=== PATIENT | male | born 1955 | race Caucasian/White ===

== ENCOUNTER 2019-01-29 10:01 | Inpatient (IN) ==
--- NOTE | 2019-01-28 08:54 | Anesthesiology Consultation ---
Date of Service January 28, 2019 Assessment & Plan Chart Review Chart Review: Acceptable Risk for Surgery (pending preop testing (if not obtained prior to surgery, will order for AM DOS)) and Patient NOT seen in Pre Admission Testing History Surgery Operation Date: 01/29/19 12:55 Proposed Procedures p Left Shoulder Arthroscopy, Revision Rotator Cuff Repair with Augment Graft Versus Superior Capsular Reconstruction - Remington Salmeron MD Height/Weight Height: 6 ft Weight: 124.738 kg Allergies Allergy/AdvReac Type Severity Reaction Status Date / Time No Known Allergies Allergy Verified 01/22/19 10:08 Medications Home Medications Medication Instructions Recorded Confirmed Last Taken docusate sodium [Stool Softener] 100 mg PO DAILY PRN 01/22/19 01/22/19 Unknown duloxetine [Cymbalta] 60 mg PO HS 01/22/19 01/22/19 Unknown ibuprofen 200 mg PO Q6H PRN 01/22/19 01/22/19 Unknown lactulose 10 g PO HS PRN 01/22/19 01/22/19 Unknown methadone 20 mg PO HS 01/22/19 01/22/19 Unknown oxycodone-acetaminophen [Percocet] 1 tab PO TID PRN 01/22/19 01/22/19 Unknown trazodone 200 mg PO HS 01/22/19 01/22/19 Unknown Past Medical History Medical History Chronic pain follows w/pain management (Dr. Morgan/ASHLEY Cruz) Constipation Depression Neuropathy Obesity Sleep apnea no device Past Surgical History Surgical History History of cataract surgery History of colonoscopy History of detached retina repair x 2 History of esophagogastroduodenoscopy (EGD) History of repair of rotator cuff Rt x 2, Lt x 2 History of toe surgery Hx of LASIK Hx of microdiscectomy lumbar spine Status post excision of lipoma RLE Social History Smoking Status: Former smoker tobacco type: cigarettes Do You Dip or Chew Tobacco: No Smoking End Date: quit 5-6 months ago Hx Alcohol Use: Yes Alcohol type: beer alcohol intake frequency: 3 or more drinks per day Alcohol Intake Frequency Comment: 3-4 drinks per day Hx Substance Use: No substance use type: does not use
--- NOTE | 2019-01-28 20:23 | History and Physical Report ---
DATE OF ADMISSION: 01/29/2019 CHIEF COMPLAINT: Chronic left shoulder pain. HISTORY OF PRESENT ILLNESS: This is a 63-year-old male patient of Dr. Caldwell who underwent a second rotator cuff repair in 08/2014. He was attending physical therapy and thinks that he re-tore it doing some exercises. An MRI confirmed a re-tear of the rotator cuff. The patient wished to proceed with a left shoulder arthroscopic revision rotator cuff repair versus augmentation with a graft. PAST MEDICAL HISTORY: Anxiety, peripheral neuropathy, sciatica. SOCIAL HISTORY: He was a lifelong smoker, quit 6 months ago. He is a 12-drink per week drinker. PAST SURGICAL HISTORY: Only significant for a lipoma removal. FAMILY HISTORY: Noncontributory. REVIEW OF SYSTEMS: Chronic left shoulder pain and weakness. Otherwise, denies any shortness of breath, chest pain, nausea, vomiting or any other joint complaints. FAMILY HISTORY: Noncontributory. MEDICATIONS: 1. Trazodone 100 mg 2 tablets daily. 2. Cymbalta 60 mg daily. 3. Percocet 10/325 three times daily as needed. 4. Methadone 10 mg 2 tablets at bedtime. ALLERGIES: No known drug allergies. PHYSICAL EXAMINATION: GENERAL: Well-developed, well-nourished 63-year-old male in no acute distress. He is alert and oriented x3 and pleasant. HEENT: Normocephalic, atraumatic. Extraocular motions are intact. Pupils are equal and reactive to light. HEART: Regular rate and rhythm, no murmurs. LUNGS: Clear. ABDOMEN: Soft, nontender, bowel sounds present. EXTREMITIES: Left shoulder reveals active range of motion of 0-170, passively to 180 with pain. He has catching and locking with range of motion. He has 4/5 strength globally. Neurologically and neurovascularly, he is intact in his left upper extremity. DIAGNOSES: Left shoulder multiple rotator cuff failures confirmed by MRI, anxiety, peripheral neuropathy. PLAN: The patient was advised of his diagnosis. Indications, risks, benefits, postop course have all been reviewed. The patient wished to proceed with a left shoulder arthroscopic revision rotator cuff repair versus augmentation with graft repair. Necessary consent forms, preoperative testing and clearances will be obtained.
[~2019-01-29 10:01] MED LIST: CEFAZOLIN 3000MG 65 ML IV SCH; DEXAMETHASONE SOD INJ 4 MG/ML VIAL ONE; EPINEPHrine INJ 1 MG/ML AMP ONE; LR 15ML/HR IV SCH; ROPIVACAINE 0.5% 5 MG/ML 30 ML VIAL ONE
[2019-01-29 11:07] LABS: Partial Thromboplastin Ratio 0.9; Partial Thromboplastin Time 23.6 Seconds (21.0-31.0); Prothrombin Time 10.3 Seconds (9.0-12.0)
--- NOTE | 2019-01-29 11:34 | XRay Report ---
TWO VIEW CHEST CLINICAL HISTORY: Preoperative examination. FINDINGS: PA and lateral chest radiographs are obtained. No prior studies are available for compariso n at the time of dictation. The cardiomediastinal silhouette is unremarkable. The lungs and pleural spaces are clear. There is no pneumothorax. The bony thorax appears intact. IMPRESSION: No active disease in the chest. Electronically signed by: Gibran Hunter M.D. 01/29/2019 11:32 AM
[2019-01-29] MEDS ORDERED: NEOSTIGMINE METHYLSULFATE 5 MG/5 ML SYR ONE (13:23)
[2019-01-29] MEDS ORDERED: GLYCOPYRROLATE 0.2 MG/ML VIAL ONE (13:23)
[2019-01-29] MEDS ORDERED: ONDANSETRON INJ 2 MG/ML 2 ML VIAL ONE (13:23)
[2019-01-29] MEDS ORDERED: MIDAZOLAM HCL 1 MG/ML 2ML VIAL ONE (13:23)
[2019-01-29] MEDS ORDERED: LIDOCAINE HCL 2% 2 ML VIAL/AMP(20MG/ML) INFIL ONE (13:23)
[2019-01-29] MEDS ORDERED: fentaNYL citrate 100 MCG/2 ML VIAL ONE (13:23)
[2019-01-29] MEDS ORDERED: PROPOFOL IV EMULSION 10 MG/ML 20 ML VIAL IV ONE (13:23)
[2019-01-29] MEDS ORDERED: DEXAMETHASONE SOD INJ 4 MG/ML VIAL ONE (13:23)
[2019-01-29] MEDS ORDERED: ROCURONIUM BROMIDE 10 MG/ML 5 ML VIAL ONE (13:23)
[2019-01-29] MEDS ORDERED: PROMETHAZINE HCL 12.5 MG in SODIUM CHLORIDE 0.9% 50 ML IV PRN (13:51)
[2019-01-29] MEDS ORDERED: HYDROmorphone INJ 1 MG/ML SYRINGE IV PRN (13:51)
[2019-01-29] MEDS ORDERED: FLUMAZENIL 0.1 MG/1 ML 10 ML VIAL IV PRN (13:51)
[2019-01-29] MEDS ORDERED: ONDANSETRON INJ 2 MG/ML 2 ML VIAL IV PRN (13:51)
[2019-01-29] MEDS ORDERED: NALOXONE HCL 0.4 MG/1 ML VIAL/CARP IV PRN ×2 (13:51→19:08)
[2019-01-29] MEDS ORDERED: ePHEDrine sulfate 50 MG/ML AMP IV PRN (13:51)
[2019-01-29] MEDS ORDERED: ATROPINE SULFATE 0.1 MG/ML 10ML SYR IV PRN (13:51)
[2019-01-29] MEDS ORDERED: LABETALOL HCL IV 5 MG/ML 20ML IV PRN (13:51)
--- NOTE | 2019-01-29 14:13 | History & Physical Bridge Note ---
Date of Service January 29, 2019 History & Physical Bridge Note I have examined the patient, reviewed the History & Physical and in the interval since the performance of the History & Physical I have noted the following changes of clinical significance: no changes noted
[2019-01-29] MEDS ORDERED: EPINEPHrine HCL INJ 1 MG/ML 30ML ONE (14:48)
[2019-01-29] MEDS ORDERED: ePHEDrine sulfate 50 MG/ML SYR ONE (17:28)
[2019-01-29] MEDS ORDERED: KETOROLAC 30 MG/ML VIAL ONE (17:35)
--- NOTE | 2019-01-29 18:01 | Post Operative Brief Note ---
Immediate Post Op Note v1 Date of Surgery January 29, 2019 Pre & Post Diagnosis Operation Date: 01/29/19 12:55 Pre-Op Diagnosis: Left Shoulder Recurrent Rotator Cuff Tear Post-Op Diagnosis: Left Shoulder Recurrent Rotator Cuff Tear, subacromial impingement, AC joint osteoarthritis, subacromial bursitis, rotator cuff tendinopathy, long head biceps rupture, DJD glenohumeral joint, degenerative glenoid labral tear, estephania ined suture material and anchor status post prior rotator cuff repair. I identified the patient and participated in the time-out.: Yes Procedure Operation Date: 01/29/19 12:55 Actual Procedures p Left Shoulder Arthroscopy, Revision Rotator Cuff Repair and subacromial decompression, primary distal clavicle excision, extensive debridement.- Remington Salmeron MD Surgeon Remington Salmeron MD Server Developer ASHLEY Mota Estimated Blood Loss 5 Findings Consistent with Post-Op Diagnosis Anesthesia Type General Regional Disposition Accompanied Patient To Recovery: No Disposition: Recovery Room Overlapping Procedure I was immediately available: during the entire case.
--- NOTE | 2019-01-29 18:18 | Operative Report ---
Post Operative Report Pre & Post Diagnosis Operation Date: 01/29/19 12:55 Pre-Op Diagnosis: Left Shoulder Recurrent Rotator Cuff Tear, Failed rotator cuff repair. Post-Op Diagnosis: Left Shoulder Recurrent Rotator Cuff Tear, failed rotator cuff repair, subacromial impingement, AC joint osteoarthritis, subacromial bursitis, retained suture material and suture anchor status post prior repair, glenohumeral DJD and degenerative glenoid labral tear and long head biceps rupture. I identified the patient and participated in the time-out.: Yes Procedure Operation Date: 01/29/19 12:55 Actual Procedures p Left Shoulder Arthroscopy, Revision Rotator Cuff Repair and revision subacromial decompression with primary distal clavicle excision and extensive debridement.- Remington Salmeron MD Surgeon Remington Salmeron MD Noc Analyst ASHLEY Mota Estimated Blood Loss 5 Findings Consistent with Post-Op Diagnosis Specimens None Drains None Anesthesia Type General Regional Complications none Disposition Accompanied Patient To Recovery: No Disposition: Recovery Room Indications 63-year-old male with recent rotator cuff repair that went on to failure with chronic unremitting pain weakness. Multiple tests including MRIs x-rays CT demonstrating a moderate retracted failed rotator cuff repair with reasonable good muscle bellies of retained anchors from prior surgery with no loosening of anchors with prior subacromial decompression but significant spurs and prominence under AC joint which are likely causing continued impingement. Description of Procedure The patient was to the operating room anesthetized under regional block and general anesthesia. The patient was positioned on the operating table in the 7 0 beachchair position. All of the other extremities were well-padded. The left upper extremity was prepped and draped in the usual sterile fashion. Examination demonstrated moderate obesity good passive range of motion subacromial crepitation some prominence of the AC joint previous scars from prior surgery.. Arthroscopy of the shoulder was performed via anterior and posterior arthroscopy portals. Posterior portal was placed in the soft spot and the anterior portal was placed in the rotator interval. Subsequent portals included lateral subacromial and superior lateral incision for suture anchor placement. The following findings were noted: In the glenohumeral joint there were delaminating flaps of articular surface of the humeral head one small grade 4 lesion about 5 mm. There was grade III and II chondromalacia inferior mid glenoid area. There was degenerative fraying of the labrum anterior inferior to posterior inferior. Long head biceps was ruptured and absent. Rotator cuff was torn with a large V- shaped tear with the supraspinatus retracted anteriorly with the rotator interval tissue and the infraspinatus still intact. Infraspinatus did have significant tendinopathy with marked fraying of the tendon but a fairly landon tendon and it did hold sutures satisfactorily. In the subacromial space was a lateral acromioplasty performed medial side had large spurs type III shape to the acromion significant subacromial impingement inferior AC joint spurs contribute to impingement and moderately advanced AC joint arthritis with some scar tissue of the AC joint. There is chronic subacromial bursitis there was tendinopathy of the entire rotator cuff bursal surface with fraying of the supraspinatus tissue as well as the infraspinatus tissue. Some of the tapes of the previous fixation were still intact and the failure of the rotator cuff repair was soft tissue failure. There was one exposed anchor which was slightly prominent with some suture knots and suture material noted in that area. There was a small area of exposed bone on the greater tuberosity which was about 15 mm wide at the articular margin and 8 mm wide at the lateral greater tuberosity with a triangular shaped area of failure of the cuff to heal that area. This created a large V shaped type tear. The flaps were mobile so that we can do a [id number] closure. Attention was first taken to performing extensive debridement of glenohumeral joint removing the unstable flaps around the grade 4 lesion all delaminating flaps and humeral head removed the grade 3 areas of fraying on the glenoid were smoothed down the labrum was debrided back to stable intact tissue. The scarred capsule anterior superior was released under the supraspinatus infraspinatus and and rotator interval to mobilize the supraspinatus tendon tissue. The subscapularis tendon was intact. The undersurface of the rotator cuff was debrided. And subacromial space the bursa and periosteum the undersurface of the acromion was ablated to fully visualize the acromion pattern. The pathological bursa around the rotator cuff tear was resected to fully visualize rotator cuff tear pattern. The bursal surface of the rotator cuff was debrided removing the frayed bursal sided rotator cuff degenerative tissue. The edges of the tear were debrided. The footprint supraspinatus was abraded down to bone to get a healing response for the repair. The anchor that was slightly prominent was trimmed back to the left intact. The suture material was removed from the old repair. Basket punch was used to remove the suture material. A subacromial revision decompression was performed. Used a 5.5 bur to plane that acromion to type I flat shape taking care to smooth the previous contour edge that was prominent at the edge of the prior acromioplasty to a smoother surface and the spurs toward the medial AC joint area were all resected. 1 cm distal clavicle was resected using the hardeep through the anterolateral portal of 30 and 70 degree arthroscope of the visualized resection leave the superior and posterior capsule intact for stability. The rotator cuff was repaired with 3 Arthrex suture tapes that were placed in [id number] fashion spanning the tear from medial to lateral. A [employer] triple loaded Helicoil suture anchor was stacked adjacent to the anchor that was still in place from the prior surgery and there was excellent fixation. The sutures were placed to the supraspinatus tendon anteriorly placing 2 and a 3 sutures around the side to side tapes using them as ripstop technique. All sutures were tied with A Jermaine sliding locking knot with 3 reversed half hitches and alternating posts. A complete coverage of the humeral head was accomplished bringing the infraspinatus posteriorly to the supraspinatus anteriorly and the anterior supraspinatus down to bone. The repair was care with the arm at the side and with rotation there was no impingement. The portal sites were closed with interrupted nylon sutures. Sterile dressings were applied and a pillow sling immobilizer. The patient tolerated the procedure well. My physician assistant financial accountant ASHLEY Mota, assisted in arm positioning, instrument management, suture management when indicated, incision closure, sling application, and will participate in the postoperative care of the patient. I attest to the content of the Intraoperative Record and any orders documented therein. Any exceptions are noted below.
--- NOTE | 2019-01-29 18:36 | Anesthesiology Progress Note ---
Date of Service January 29, 2019 Anesthesia Post Procedure Vital Signs Vital Signs: Temp Pulse Pulse Resp BP Pulse Ox 01/29/19 18:30 72 19 142/88 H 96 01/29/19 18:20 77 18 163/98 H 97 01/29/19 18:10 71 15 172/96 H 97 01/29/19 18:02 36.7 C 91 H 12 187/83 H 93 01/29/19 10:35 36.8 C 62 18 151/99 H 98 Pain Intensity Left Shoulder: Pain Intensity: 0 Transfer of Care Handoff Completed per policy Notes Mental Status: alert / awake / arousable Patient Amnestic to Procedure: Yes Nausea / Vomiting: adequately controlled Pain: adequately controlled Airway Patency, RR, SpO2: stable & adequate BP & HR: stable & adequate Hydration State: stable & adequate Anesthetic Complications: no major complications apparent Notes: left eyelid a little droopy, likely block related.
[2019-01-29] MEDS ORDERED: MAGNESIUM HYDROXIDE SUSP 30 ML UDC PO PRN (19:08)
[2019-01-29] MEDS ORDERED: bisacodyL 10 MG SUPP PR PRN (19:08)
[2019-01-29] MEDS ORDERED: DOCUSATE SODIUM 100 MG CAP PO PRN (19:08)
[2019-01-29] MEDS ORDERED: LACTULOSE SYRUP 10 GM/15 ML BTL 473 ML PO PRN (19:23)
[2019-01-29] MEDS ORDERED: LORazepam 1 MG TAB PO PRN (19:27)
[2019-01-29] MEDS: SODIUM CHLORIDE 0.9% 1000ML 1,000 ML IV SCH (20:29)
[2019-01-29] MEDS: HYDROmorphone HCL 2 MG TAB PO PRN (20:36)
[2019-01-29] MEDS ORDERED: DULOXETINE HCL 60 MG CAP PO SCH (21:00)
[2019-01-29] MEDS ORDERED: SENNA 8.6 MG TAB PO SCH (21:00)
[2019-01-29] MEDS ORDERED: TRAZODONE HCL 100 MG TAB PO SCH (21:00)
[2019-01-29] MEDS: DOCUSATE SODIUM 100 MG CAP PO SCH (21:18)
[2019-01-29] MEDS: ACETAMINOPHEN 500 MG TAB PO SCH (21:19)
[2019-01-29] MEDS: HYDROmorphone INJ 0.5 MG/0.5 ML SYR IV PRN (23:15)
[2019-01-30] MEDS: HYDROmorphone HCL 2 MG TAB PO PRN (01:15)
[2019-01-30] MEDS: ACETAMINOPHEN 500 MG TAB PO SCH (05:43)
[2019-01-30] MEDS: SODIUM CHLORIDE 0.9% 1000ML 1,000 ML IV SCH (05:49)
[2019-01-30 06:35] LABS: Hemoglobin 14.6 g/dL (14.0-18.0); Immature Granulocytes # (auto) 0.05 K/uL (0.00-0.02); Immature Granulocytes % (auto) 0.3 %; Lymphocytes # (auto) 1.54 K/uL (1.2-3.4); Lymphocytes % (auto) 9.3 %; Mean Corpuscular Hemoglobin 32.3 pg (25-34); Mean Corpuscular Volume 95.1 fL (80-100); Mean Platelet Volume 9.9 fL (7.4-10.4); Monocytes # (auto) 0.63 K/uL (0.11-0.59); Monocytes % (auto) 3.8 %; Neutrophils # (auto) 14.41 K/uL (1.4-6.5); Neutrophils % (auto) 86.6 %; Platelet Count 257 K/uL (130-400); RDW Coefficient of Variation 13.3 % (11.5-14.5); Red Blood Count 4.52 M/uL (4.7-6.1); White Blood Count 16.63 K/uL (4.8-10.8)
[2019-01-30 07:14] LABS: BUN Creatinine Ratio 20.5 (10-20); Calcium 8.5 mg/dl (8.5-10.1); Creatinine Clr Calc Pharmacy 96.2 ml/min; Est GFR (African American) 86.8; Est GFR (Non-African American) 74.8; Potassium 4.3 mmol/L (3.5-5.1)
--- NOTE | 2019-01-30 08:30 | Orthopedic Progress Note ---
Date of Service January 30, 2019 Assessment & Plan (1) Rotator cuff syndrome of right shoulder: POD #1 Revision RCR, decompression, DCE. Limited HEP as per home instruction sheet in chart Pain control D/C home today Follow with PCP concerning BP. (2) Rotator cuff arthropathy of right shoulder: Subjective POD #1, Doing well. Denies SOB, CP, N/V. Pain controlled well. NO PT needed. BP running somewhat high, likely do to pain. Physical Exam Physical Exam: Left shoulder dressings c/d/i, no drainage. Fingers mobile. Sling in tact. N/V+ A&Ox3. Results & Data Vital Signs (Past 12 Hours) Vital Signs Temp Pulse Pulse Resp BP Pulse Ox 01/30/19 07:38 36.6 C 40 L 16 173/92 H 96 01/30/19 05:35 36.8 C 78 18 152/81 H 96 01/29/19 23:06 36.8 C 74 16 128/72 92 01/29/19 22:04 36.8 C 76 16 154/88 H 94 01/29/19 21:14 36.6 C 74 16 151/89 H 94
[2019-01-30] MEDS: DOCUSATE SODIUM 100 MG CAP PO SCH (08:52)
[2019-01-30] MEDS: HYDROmorphone INJ 0.5 MG/0.5 ML SYR IV PRN (08:56)
[2019-01-30] MEDS ORDERED: MULTIVITAMIN TAB PO SCH (09:00)
--- NOTE | 2019-01-30 14:34 | Anesthesiology Progress Note ---
Date of Service January 30, 2019 Anesthesia Post Procedure Vital Signs Vital Signs: Temp Pulse Pulse Pulse Resp BP Pulse Ox 01/30/19 10:01 36.6 C 40 L 76 16 173/92 H 96 01/30/19 07:38 36.6 C 40 L 16 173/92 H 96 01/30/19 05:35 36.8 C 78 18 152/81 H 96 01/29/19 23:06 36.8 C 74 16 128/72 92 01/29/19 22:04 36.8 C 76 16 154/88 H 94 01/29/19 21:14 36.6 C 74 16 151/89 H 94 01/29/19 20:10 36.6 C 70 16 148/87 H 95 01/29/19 19:34 36.7 C 60 18 168/96 H 95 01/29/19 19:05 36.9 C 65 16 151/91 H 97 01/29/19 18:40 37.4 C 68 19 158/88 H 96 01/29/19 18:30 72 19 142/88 H 96 01/29/19 18:20 77 18 163/98 H 97 01/29/19 18:10 71 15 172/96 H 97 01/29/19 18:02 36.7 C 91 H 12 187/83 H 93 Pain Intensity Left Shoulder: Pain Intensity: 5 Notes Mental Status: alert / awake / arousable and participated in evaluation Patient Amnestic to Procedure: Yes Nausea / Vomiting: adequately controlled Pain: adequately controlled Airway Patency, RR, SpO2: stable & adequate BP & HR: stable & adequate Hydration State: stable & adequate Anesthetic Complications: no major complications apparent and Pt Satisfied with anesthetic care
--- NOTE | 2019-02-11 18:38 | Discharge Summary ---
CHIEF COMPLAINT: Chronic left shoulder pain. HISTORY OF PRESENT ILLNESS: This is a 63-year-old male patient of Dr. Caldwell who underwent a second rotator cuff repair in August of 2014. He was attending physical therapy and thinks he re-tore it. MRI confirmed a retear of the rotator cuff. The patient wished to proceed with a left shoulder arthroscopic revision rotator cuff repair. PAST MEDICAL HISTORY: Anxiety, peripheral neuropathy and sciatica. POSTOPERATIVE COURSE: The patient underwent a left shoulder arthroscopy, revision rotator cuff repair and revision subacromial decompression with a primary distal clavicle excision. The patient was followed closely with physical therapy and pain control. The patient did well postoperatively and was discharged home on postoperative day #1. PHYSICAL EXAMINATION: On discharge the patient's left shoulder dressings were clean, dry and intact. There was no drainage. Fingers were mobile. Sling was intact. He was alert and oriented x3 and pleasant. Neurologically and neurovascularly he was intact in his left upper extremity. DIAGNOSES: Status post left revision rotator cuff repair, decompression, distal clavicle excision. He also has a history of anxiety, peripheral neuropathy and sciatica. PLAN: The patient was advised of his diagnosis. He was discharged home with his preadmission medications with the addition of pain medications. He will start physical therapy within 2 days of discharge.
== END 2019-01-30 10:44 | disposition home or self-care (01) | DRG 502 ==
LOC: ASU 10:01 → 3E 18:05